=== PATIENT | male | born 1980 | race Caucasian/White ===

== ENCOUNTER 2018-04-28 10:54 | Emergency (ER) ==
[2018-04-28 10:59] VITALS: BP 151/66; TEMP 98.1; BMI 41.9
[2018-04-28] MEDS ORDERED: ASPIRIN CHEWABLE PO STA (11:15)
--- NOTE | 2018-04-28 12:13 | CT ---
EXAM: CT chest without contrast HISTORY: Pain COMPARISON: None TECHNIQUE: CT chest performed without intravenous contrast. Coronal and sagittal reformatted images obtained. FINDINGS: Thyroid and thoracic inlet appear normal. Heart normal in size. No pericardial effusion. Aorta normal in caliber. Esophagus unremarkable. No lymphadenopathy identified. Evaluation for l ymphadenopathy limited without contrast. No lymphadenopathy identified. Calcified mediastinal and l eft hilar lymph nodes, consistent with old granulomatous disease. Mild bilateral gynecomastia. Live r diffusely decreased in attenuation. Several mildly prominent han hepatic/portacaval lymph nodes. No acute abnormalities of the bones. Degenerative change in the spine. Central airway patent. Mi ld dependent density lung bases. No airspace consolidation. No pleural effusion. No pneumothorax. 5 mm perifissural nodule right lung image 33. Calcified granuloma left lung. IMPRESSION: 1. No acute cardiopulmonary process. 2. 5 mm perifissural nodule right lung. Consider CT chest follow-up in 12 months if patient at high risk for malignancy, such as a smoker or former smoker. Otherwise, no follow-up recommended. 3. Hepatic steatosis. Several mildly prominent han hepatic/portacaval lymph nodes, nonspecific, t denis can be seen in underlying liver disease. 4. Mild bilateral gynecomastia.
--- NOTE | 2018-04-28 12:32 | ED.PDOC ---
General ED Provider: Dr. JOSE LUIS CRENSHAW Chief Complaint: Chest Pain Stated Complaint: chest pain Time Seen by Physician: 11:00 Mode of Arrival: Walk-In Information Source: Patient Exam Limitations: No limitations Nursing and Triage Documentation Reviewed and Agree: Yes Does patient meet sepsis criteria?: No If yes, has appropriate treatment been initiated?: No System Inflammatory Response Syndrome: Not Applicable Sepsis Protocol: For patient's 13 years and over: Temp is 96.8 and below OR 101 and greater Pulse >90 BPM Resp >20/minute Acutely Altered Mental Status Are patient's symptoms suggestive of a new infection, such as: -Pneumonia -Skin, Soft Tissue -Endocarditis -UTI -Bone, Joint Infection -Implantable Device -Acute Abdominal Infection -Wound Infection -Meningitis -Blood Stream Catheter Infection -Unknown Cardiovascular Complaint Exam - Chest Pain Complaint/Exam Onset: Gradual Duration: 1 month worse today Symptoms Are: Still present Timing: Intermittent Length of Chest Pain Episodes: 1 hr Initial Severity: Moderate Current Severity: Mild Location: Reports: Discrete, Midsternal Pain Radiates: Reports: None Character: Reports: Dull, Aching Aggravating: Reports: None Alleviating: Reports: None Associated Signs and Symptoms: Denies: Diaphoresis, Nausea, Vomiting, Fever, Palpitations, Cough, Hemoptysis, Back pain, Abdominal pain, Dizziness, Short of air, Calf pain, Calf swelling Related History: Reports: Similar episode Related Surgical History: Reports: None History of Healthcare-Acquired Pneumonia: Reports: No AMI/ACS Risk Factors: Reports: None TAD Risk Factors: Reports: None Pulmonary Embolism Risk Factors: Reports: None Prior Care for this Complaint: No Recent Stress Test: No Recent Echo/LV Function: No JVD Present: No Subcutaneous Emphysema Present: No Diminshed Breath Sounds: No Reproducible Chest Wall Pain: No Bilateral Pulses Present: No Unequal Pulses Noted: No If Risk Factors for AMI/ACS Consider: EKG Review of Systems - Review Of Systems Constitutional: Reports: No symptoms Eyes: Reports: No symptoms Ears, Nose, Mouth, Throat: Reports: No symptoms Respiratory: Reports: No symptoms Cardiac: Reports: Chest pain GI: Reports: No symptoms : Reports: No symptoms Musculoskeletal: Reports: No symptoms Skin: Reports: No symptoms Neurological: Reports: No symptoms Endocrine: Reports: No symptoms Hematologic/Lymphatic: Reports: No symptoms All Other Systems: Reviewed and Negative Past Medical History - Past Medical History Previously Healthy: Yes Endocrine: Reports: None Cardiovascular: Reports: None Respiratory: Reports: None Hematological: Reports: None Gastrointestinal: Reports: None Genitourinary: Reports: None Neuro/Psych: Reports: None Musculoskeletal: Reports: None Cancer: Reports: None - Surgical History General Surgical History: Reports: None - Family History Family History: Reports: None - Social History Smoking Status: Current every day smoker, Heavy tobacco smoker Hx Substance Use: (marijuana) Alcohol Screening: Occasionally Physical Exam - Physical Exam Appearance: Well-appearing, No pain distress, Well-nourished Eyes: MARTINA, EOMI, Conjunctiva clear ENT: Ears normal, Nose normal, Oropharynx normal Respiratory: Airway patent, Breath sounds clear, Breath sounds equal, Respirations nonlabored Cardiovascular: RRR, Pulses normal, No rub, No murmur GI/: Soft, Nontender, No masses, Bowel sounds normal, No Organomegaly Musculoskeletal: Normal strength, ROM intact, No edema, No calf tenderness Skin: Warm, Dry, Normal color Neurological: Sensation intact, Motor intact, Reflexes intact, Cranial nerves intact, Alert, Oriented Psychiatric: Affect appropriate, Mood appropriate Interpretation - Radiology Interpretation Radiology Interpretation By: Radiologist Radiology Results: No acute changes (pulmonary nodule) - Professor Of Practice Rate: Normal Rhythm: Sinus Ectopy: None - EKG Interpretation Rate: Normal Rhythm: Sinus Ectopy: None [place]: [place] ST Segment: Normal Physician Notification - Case Discussed Physician Notified: jose angel correa Time of Notification: 12:32 (transfer ) Critical Care Note - Critical Care Note Total Time (mins): 0 Course - Course Hematology/Chemistry: 04/28/18 11:15 04/28/18 11:15 Orders, Labs, Meds: Lab Review 04/28/18 04/28/18 04/28/18 11:15 11:15 11:15 WBC 14.76 H RBC 4.72 Hgb 14.9 Hct 43.3 MCV 91.7 MCH 31.6 H MCHC 34.4 RDW Coeff of Ab 13.1 Plt Count 271 Immature Gran % (Auto) 0.3 Neut % (Auto) 70.8 Lymph % (Auto) 18.4 [place] % (Auto) 7.5 Eos % (Auto) 2.5 Baso % (Auto) 0.5 Immature Gran # (Auto) 0.1 Neut # (Auto) 10.5 H Lymph # (Auto) 2.7 [place] # (Auto) 1.1 Eos # (Auto) 0.4 Baso # (Auto) 0.1 PT 10.4 INR 1.04 APTT 28.5 Sodium 137.7 Potassium 4.02 Chloride 105.7 Carbon Dioxide 26.3 Anion Gap 9.72 BUN 10.2 Creatinine 0.91 Estimated GFR (MDRD) 93.00 BUN/Creatinine Ratio 11.20 Glucose 94.6 Calcium 9.12 Total Bilirubin 0.62 AST 25.3 ALT 29.6 Alkaline Phosphatase 75.5 Total Creatine Kinase 323.9 H CK-MB (CK-2) 1.600 CK-MB (CK-2) % 0.4900 Troponin I < 0.012 Total Protein 7.70 Albumin 4.17 Globulin 3.53 Albumin/Globulin Ratio 1.18 Orders Category Date Time Status EKG-(ED ONLY) Stat CARDIO 04/28/18 12:00 Completed ED IV/MEDIPORT/POWERPORT .ONCE EMERGENCY 04/28/18 11:15 Active CBC W/ AUTO DIFF Stat LAB 04/28/18 11:15 Completed COMPREHENSIVE METABOLIC PANEL Stat LAB 04/28/18 11:15 Completed CREATINE KINASE Stat LAB 04/28/18 11:15 Completed PARTIAL THROMBOPLASTIN TIME Stat LAB 04/28/18 11:15 Completed PT WITH INR Stat LAB 04/28/18 11:15 Completed TROPONIN I Stat LAB 04/28/18 11:15 Completed 0.9 % Sodium Chloride [Saline Flush] MEDS 04/28/18 11:14 Active 1 syr IVF PRN PRN Aspirin [Aspirin Chewable] MEDS 04/28/18 11:15 Discontinued 324 mg PO ONCE STA CT CHEST W/O CONTRAST Stat RADS 04/28/18 11:14 Completed Medications Generic Name Dose Route Start Last Admin Trade Name Freq PRN Reason Stop Dose Admin Sodium Chloride 1 syr 04/28/18 11:14 04/28/18 11:29 Saline Flush IVF 1 syr PRN PRN Administration To flush IV Discontinued Medications Generic Name Dose Route Start Last Admin Trade Name Freq PRN Reason Stop Dose Admin Aspirin 324 mg 04/28/18 11:15 04/28/18 11:28 Aspirin Chewable PO 04/28/18 11:16 324 mg ONCE STA Administration Vital Signs: Temp Pulse Resp BP Pulse Ox 04/28/18 10:54 98.1 F 64 20 151/66 H 94 L KALA Risk Score KALA Risk Score: Risk Score Odds of by 30D 0 0.1 (0.1-0.2) 1 0.3 (0.2-0.3) 2 0.4 (0.3-0.5) 3 0.7 (0.6-0.9) 4 1.2 (1.0-1.5) 5 2.2 (1.9-2.6) 6 3.0 (2.5-3.6) 7 4.8 (3.8-6.1) Departure - Departure Time of Disposition: 12:32 Disposition: TSF SHORT-TRM HOSP Discharge Problem: Chest pain Instructions: Angina (ED) Condition: Good Pt referred to PMD for follow-up: Yes IPMP verified?: No Allergies/Adverse Reactions: Allergies No Known Allergies Allergy (Verified 04/28/18 11:00) Home Medications: Ambulatory Orders 1 [No Reported Medications] 04/28/18
== END 2018-04-28 13:10 | disposition short-term general hospital (02) ==
LOC: ED 10:54
DX: R07.9 Chest pain, unspecified (principal); F17.210 Nicotine dependence, cigarettes, uncomplicated
CPT/HCPCS: 36415; 80053; 82550; 82553; 84484; 85025; 85610; 85730; 93005; 93010; 99285

== ENCOUNTER 2018-04-28 13:08 | Outpatient (CLI) ==
[2018-04-28 10:59] VITALS: BMI 41.9
== END 2018-04-28 13:28 | disposition short-term general hospital (02) ==
LOC: AMBL 13:08
PROVIDERS: ATTEND Internal Medicine
DX: R07.9 Chest pain, unspecified (principal)

== ENCOUNTER 2018-09-13 08:57 | Emergency (ER) | payer OTHER ==
[2018-09-13 09:02] VITALS: BP 143/77; TEMP 100.3; BMI 42.7
--- NOTE | 2018-09-13 09:27 | ED.PDOC ---
General ED Provider: Dr. TEJA LAURENT Chief Complaint: Urinary Problem Stated Complaint: difficultyn passing urine and gross hematuria.Bilateral lower back area discxomfort or pain. Time Seen by Physician: 09:28 Mode of Arrival: Walk-In Information Source: Patient, Family Exam Limitations: No limitations Nursing and Triage Documentation Reviewed and Agree: Yes Does patient meet sepsis criteria?: No System Inflammatory Response Syndrome: Not Applicable Sepsis Protocol: For patient's 13 years and over: Temp is 96.8 and below OR 101 and greater Pulse >90 BPM Resp >20/minute Acutely Altered Mental Status Are patient's symptoms suggestive of a new infection, such as: -Pneumonia -Skin, Soft Tissue -Endocarditis -UTI -Bone, Joint Infection -Implantable Device -Acute Abdominal Infection -Wound Infection -Meningitis -Blood Stream Catheter Infection -Unknown Review of Systems - Review Of Systems Constitutional: Reports: Fever, Other Eyes: Reports: No symptoms Ears, Nose, Mouth, Throat: Reports: No symptoms Respiratory: Reports: No symptoms Cardiac: Reports: No symptoms GI: Reports: No symptoms : Reports: No symptoms Musculoskeletal: Reports: No symptoms Skin: Reports: No symptoms Neurological: Reports: No symptoms. Denies: Unable to move lower ext Endocrine: Reports: No symptoms. Denies: Increased hunger Hematologic/Lymphatic: Reports: No symptoms All Other Systems: Other Past Medical History - Past Medical History Previously Healthy: Yes Endocrine: Reports: None Cardiovascular: Reports: None Respiratory: Reports: None Hematological: Reports: None Gastrointestinal: Reports: None Genitourinary: Reports: None Neuro/Psych: Reports: None Musculoskeletal: Reports: None Cancer: Reports: None - Surgical History General Surgical History: Reports: None - Family History Family History: Reports: None - Social History Smoking Status: Current every day smoker, Heavy tobacco smoker Hx Substance Use: (marijuana) Alcohol Screening: Occasionally Physical Exam - Physical Exam Appearance: Well-appearing Ill-appearing: None Pain Distress: Mild Eyes: MARTINA ENT: Ears normal Neck: Supple Respiratory: Airway patent Cardiovascular: RRR GI/: Soft, Tender Musculoskeletal: Normal strength Skin: Warm, Dry Neurological: Sensation intact Psychiatric: Affect appropriate Re-Evaluation - Re-Evaluation Time of Re-Evaluation: 14:40 (contra[address] CT abd/p shjowing mass in r kidney.) Status: Unchanged Vital Signs Stable: Yes Appearance: NAD Lungs: Clear Skin: Warm and Dry Neuro: Alert and Oriented X3 CV: RRR Critical Care Note - Critical Care Note Total Time (mins): 0 Course - Course Hematology/Chemistry: 09/13/18 09:45 09/13/18 09:45 Orders, Labs, Meds: Lab Review 09/13/18 09/13/18 09/13/18 09:30 09:45 09:45 WBC 17.07 H RBC 4.64 L Hgb 14.8 Hct 42.8 MCV 92.2 MCH 31.9 H MCHC 34.6 RDW Coeff of Ab 13.9 Plt Count 236 Immature Gran % (Auto) 0.4 Neut % (Auto) 80.2 Lymph % (Auto) 11.1 [place] % (Auto) 6.8 Eos % (Auto) 1.1 Baso % (Auto) 0.4 Immature Gran # (Auto) 0.1 Neut # (Auto) 13.7 H Lymph # (Auto) 1.9 [place] # (Auto) 1.2 Eos # (Auto) 0.2 Baso # (Auto) 0.1 Sodium 139.9 Potassium 4.39 Chloride 102.6 Carbon Dioxide 27.8 Anion Gap 13.89 BUN 10.3 Creatinine 0.95 Estimated GFR (MDRD) 88.00 BUN/Creatinine Ratio 10.84 Glucose 89.5 Lactic Acid Calcium 9.05 Total Bilirubin 0.59 AST 23.4 ALT 24.1 Alkaline Phosphatase 67.4 Total Protein 7.52 Albumin 4.23 Globulin 3.29 Albumin/Globulin Ratio 1.28 Urine Color Yellow Urine Clarity Cloudy Urine pH 7.0 Ur Specific [place] 1.020 Urine Protein 1+ Urine Glucose (UA) Negative Urine Ketones Negative Urine Blood 3+ Urine Nitrite Negative Urine Bilirubin Negative Urine Urobilinogen 0.2 Ur Leukocyte Esterase 2+ Urine Microscopic RBC 10-20 Urine Microscopic WBC Tntc Ur Squamous Epith Cells 2-5 Urine Bacteria 3+ 09/13/18 09:45 WBC RBC Hgb Hct MCV MCH MCHC RDW Coeff of Ab Plt Count Immature Gran % (Auto) Neut % (Auto) Lymph % (Auto) [place] % (Auto) Eos % (Auto) Baso % (Auto) Immature Gran # (Auto) Neut # (Auto) Lymph # (Auto) [place] # (Auto) Eos # (Auto) Baso # (Auto) Sodium Potassium Chloride Carbon Dioxide Anion Gap BUN Creatinine Estimated GFR (MDRD) BUN/Creatinine Ratio Glucose Lactic Acid 0.93 Calcium Total Bilirubin AST ALT Alkaline Phosphatase Total Protein Albumin Globulin Albumin/Globulin Ratio Urine Color Urine Clarity Urine pH Ur Specific [place] Urine Protein Urine Glucose (UA) Urine Ketones Urine Blood Urine Nitrite Urine Bilirubin Urine Urobilinogen Ur Leukocyte Esterase Urine Microscopic RBC Urine Microscopic WBC Ur Squamous Epith Cells Urine Bacteria Orders Category Date Time Status NPO REMINDER: IMAGING ONCE CARE 09/13/18 10:40 Active ED BLADDER SCAN .ONCE EMERGENCY 09/13/18 09:32 Active IV [ED IV/MEDIPORT/POWERPORT] .ONCE EMERGENCY 09/13/18 09:33 Active CBC W/ AUTO DIFF Stat LAB 09/13/18 09:45 Completed CMP [COMPREHENSIVE METABOLIC PANEL] Stat LAB 09/13/18 09:45 Completed LACTIC ACID Stat LAB 09/13/18 09:45 Completed UA [URINALYSIS C & S IF INDICATED] Stat LAB 09/13/18 09:30 Completed URINE CULTURE Stat LAB 09/13/18 09:30 Received 0.9 % Sodium Chloride [Saline Flush] MEDS 09/13/18 09:33 Active 1 syr IVF PRN PRN Levofloxacin/D5w [Levaquin] 100 ml MEDS 09/13/18 13:31 Discontinued IV .STK-MED Levofloxacin/D5w [Levaquin] 500 mg MEDS 09/13/18 13:28 Discontinued Premix 100 ml D5w 1 bag IV ONCE Ondansetron HCl/Pf [Zofran 4 mg/2 ml] MEDS 09/13/18 14:11 Discontinued 8 mg IVP ONCE STA Sodium Chloride 0.9% [Sodium Chloride] 1,000 ml MEDS 09/13/18 09:35 Active IV 100 mls/hr CT ABDOMEN/PELVIS W CONTRAST Stat RADS 09/13/18 10:[address] ABDOMEN/PELVIS WO CONTRAST Stat RADS 09/13/18 09:39 Completed Medications Generic Name Dose Route Start Last Admin Trade Name Freq PRN Reason Stop Dose Admin Sodium Chloride 1,000 mls @ 100 mls/hr 09/13/18 09:35 09/13/18 09:57 Sodium Chloride IV 09/13/18 19:34 100 mls/hr .Q10H STA Administration Sodium Chloride 1 syr 09/13/18 09:33 09/13/18 09:57 Saline Flush IVF 1 syr PRN PRN Administration To flush IV Discontinued Medications Generic Name Dose Route Start Last Admin Trade Name Freq PRN Reason Stop Dose Admin Levofloxacin/Dextrose 500 mg/ 100 mls @ 100 mls/hr 09/13/18 13:28 09/13/18 13 :34 Dextrose IV 09/13/18 14:27 100 mls/hr ONCE STA Administration Ondansetron HCl 8 mg 09/13/18 14:11 09/13/18 14:18 Zofran 4 Mg/2 Ml IVP 09/13/18 14:12 8 mg ONCE STA Administration Vital Signs: Temp Pulse Resp BP Pulse Ox 09/13/18 08:58 100.3 F H 76 20 143/77 H 95 Departure - Departure Time of Disposition: 14:42 Disposition: HOME SELF-CARE Discharge Problem: Kidney tumor Instructions: Renal Cancer (DC) Condition: Good Pt referred to PMD for follow-up: Yes (follow with specialty clinic and PCP) IPMP verified?: No Additional Instructions: All studies in ED explained to patient and .Adviced to sammy with nephrology clinic for link referral to specialty uro-nephrology and potrentially oncology [facility] [place],Also follow with PCP, Allergies/Adverse Reactions: Allergies No Known Allergies Allergy (Verified 09/13/18 09:02) Home Medications: Ambulatory Orders 1 [No Reported Medications] 04/28/18 Disposition Discussed With: Patient, Family
[2018-09-13] MEDS ORDERED: SODIUM CHLORIDE 1,000 ML IV STA (09:35)
--- NOTE | 2018-09-13 10:22 | CT ---
EXAM: CT abdomen pelvis without contrast TECHNIQUE: Helical axial CT of the abdomen and pelvis was performed without contrast with coronal an d sagittal reconstructions. COMPARISON: Chest CT from 04/28/2018 HISTORY: Abdominal pain FINDINGS: There is no acute abnormality. Specifically there is no mesenteric inflammation, free air, free fluid or bowel wall thickening or edema or pathologic lymph nodes or obstruction or ileus. The appendix is normal. There are no inflamed colonic diverticula. The liver, spleen, pancreas,and adrenal glands show no acute abnormality. Lung bases are well-aerate d. There is no hiatal hernia. The gallbladder is normal with no stones or inflammation. There is no biliary or pancreatic ductal dilatation. There is an exophytic lesion arising from the lower pole of the right kidney measuring about 2 cm in diameter with some adjacent local perinephric fat stranding. The attenuation of this lesion appears s imilar to renal tissue. There is no hydronephrosis or kidney stones. Both ureters demonstrate norm al course and caliber. There is no filling defect in the urinary bladder. There are no abdominal wall hernias. The aorta is normal with no aneurysm or calcific atherosclerosis . There are no acute osseous abnormalities. IMPRESSION: 1. Indeterminate exophytic lesion arising from the right kidney lower pole as described. Would steven mmend follow-up ultrasound or contrasted CT to rule out solid lesion. 2. No evidence for free air free fluid or bowel wall thickening or edema.
--- NOTE | 2018-09-13 11:53 | CT ---
EXAM: CT abdomen pelvis with contrast TECHNIQUE: Helical axial CT of the abdomen and pelvis was performed with contrast with coronal and s agittal reconstructions. Delayed imaging was performed. COMPARISON: CT of the abdomen pelvis without contrast from earlier today. HISTORY: Concern for right renal mass FINDINGS: Exophytic right kidney lower pole 2 cm diameter lesion is again seen with some adjacent perinephric m esenteric stranding. This lesion demonstrates heterogeneous enhancement and is well circumscribed. There is no hydronephrosis. The left kidney is normal. Otherwise there is no bowel mesenteric inflammation, free air, free fluid or bowel wall thickening or edema or pathologic lymph nodes or obstruction or ileus. The appendix is normal. There are no infla med colonic diverticula. The liver, spleen, pancreas,and adrenal glands show no acute abnormality. There is fatty infiltration of the liver. Lung bases are well-aerated. There is no hiatal hernia. The gallbladder is normal wit h no stones or inflammation. There is no biliary or pancreatic ductal dilatation. There are no abdominal wall hernias. The aorta is normal with no aneurysm or calcific atherosclerosis . There are no acute osseous abnormalities. IMPRESSION: 1. Exophytic right renal lesion as described demonstrating heterogeneous enhancement surrounding per inephric fat stranding is highly suspicious for renal cell carcinoma. 2. Fatty infiltration of the liver.
[2018-09-13] MEDS ORDERED: LEVAQUIN 500 MG in PREMIX 100 ML D5W 1 BAG IV STA (13:28)
[2018-09-13] MEDS ORDERED: LEVAQUIN 500 MG in PREMIX 100 ML D5W 1 BAG IV SCH (13:30)
[2018-09-13] MEDS ORDERED: LEVAQUIN 100 ML IV ONE (13:31)
[2018-09-13] MEDS ORDERED: ZOFRAN 4 MG/2 ML IVP STA (14:11)
== END 2018-09-13 15:12 | disposition home or self-care (01) ==
LOC: ED 08:57
DX: D49.511 Neoplasm of unspecified behavior of right kidney (principal); F17.210 Nicotine dependence, cigarettes, uncomplicated
CPT/HCPCS: 36415; 51798; 80053; 81001; 83605; 85025; 87086; 87186; 96361; 96365; 96375; 99283